=== PATIENT | female | born 1960 | race Caucasian/White ===

== ENCOUNTER 2021-03-13 15:49 | Emergency (ER) | payer SELFPAY ==
[~2021-03-13 15:49] MED LIST: Iopamidol 370 76% 100 ML VIAL ONE
[2021-03-13] MEDS ORDERED: Thiamine HCl 200 MG/2 ML VIAL ONE (16:16)
[2021-03-13] MEDS ORDERED: Sodium Chloride 0.9% 100 ML ONE ×2 (16:19→17:55)
[2021-03-13 16:30] LABS: #Basophils 0.1 thou/uL (0.0-0.2); #Eosinphils 0.3 thou/uL (0.0-0.7); #Lymphocytes 1.8 thou/uL (1.20-3.40); #Monocytes 0.6 thou/uL (0.11-0.59); #Neutrophils 4.9 thou/uL (1.40-6.50); %Basophils 0.7 % (0.0-1.0); %Eosinophils 3.5 % (0.0-10.0); %Neutrophils 63.8 % (42.0-75.0); Hemoglobin 12.1 g/dL (12.0-16.0); Mean Corpuscular HGB CONC 33.7 g/dL (32.0-36.0); Mean Corpuscular Hemoglobin 32.9 pg (27.0-31.0); Mean Corpuscular Volume 97.7 fL (78.0-98.0); Mean Platelet Volume 7.9 fL (7.4-10.4); Platelet Count 372 thou/uL (130-400); RBC Distribution Width 12.9 % (11.5-14.5); Red Blood Cell (RBC) Count 3.67 mill/uL (4.20-5.40); White Blood Cell (WBC) Count 7.6 thou/uL (4.8-10.8)
[2021-03-13 16:44] LABS: ALT (SGPT) 17 U/L (8-55); AST (SGOT) 22 U/L (5-34); Albumin 3.3 g/dL (3.4-4.8); Alkaline Phosphatase 93 U/L (40-110); Anion Gap 15 mmol/L (10-20); BUN (Urea Nitrogen) 4 mg/dL (9.8-20.1); Bilirubin, Total 0.4 mg/dL (0.2-1.2); CK (CPK) 38 U/L (29-168); Calc. Creatinine Clearance 0 mL/min (70-130); Calcium 9.2 mg/dL (7.8-10.44); Carbon Dioxide 23 mmol/L (23-31); Chloride 101 mmol/L (98-107); Globulin 3.1 g/dL (2.4-3.5); Glucose 84 mg/dL (80-115); Magnesium 1.9 mg/dL (1.6-2.6); Protein, Total 6.4 g/dL (5.8-8.1); Sodium 136 mmol/L (136-145)
[2021-03-13] MEDS ORDERED: methylPREDNISolone Sod Succ/PF 125 MG/2 ML VIAL ONE (17:27)
[2021-03-13] MEDS ORDERED: Sodium Chloride 0.9% 1,000 ML ONE (17:27)
[2021-03-13] MEDS ORDERED: Aspirin Chewable 81 MG TAB ONE (17:30)
[2021-03-13 17:32] LABS: Bilirubin Negative (Negative); Blood, Urine Negative (Negative); Clarity Clear (Clear); Glucose, Urine (Dipstick) Negative (Negative); Ketone, Urine Negative (Negative); Leukocyte Negative (Negative); Nitrite Negative (Negative); Protein, Urine (Dipstick) Negative (Neg-Trace); Urobilinogen 0.2 mg/dL (Less than 2)
[2021-03-13] MEDS ORDERED: Cefepime 2 GM VIAL ONE (17:55)
[2021-03-13] MEDS ORDERED: cloNIDine 0.1 MG TAB ONE (17:55)
[2021-03-13 18:47] LABS: SARS-CoV-2 NAA Rapid Test Not Detected (NotDetected)
== END 2021-03-13 20:09 | disposition short-term general hospital (02) ==
LOC: NAV ERS 15:49
DX: I63.9 Cerebral infarction, unspecified (principal); J45.909 Unspecified asthma, uncomplicated
CPT/HCPCS: 36415; 51701; 70450; 70496; 70498; 71045; 80053; 81003; 82533; 82550; 83605; 83735; 84484; 85025; 87040; 87086; 93005; 96365; 96367; 96375; J0692; J2930; J3411; J3490; J7050; Q9967; U0002